=== PATIENT | male | born 1970 | race Two or more races ===

== ENCOUNTER 2023-08-30 19:50 | Emergency (ER) | payer OTHER ==
[~2023-08-30] VITALS: Ht 152.4 cm; Wt 87.5 kg
[2023-08-30] MEDS ORDERED: ZESTRIL10 M1 (20:16)
[2023-08-30 21:23] LABS: CALCIUM 8.8 mg/dL (8.5-10.1); CREATININE SERUM 1.28 mg/dL (0.70-1.30); GFR 58.56; POTASSIUM 4.07 mEq/L (3.5-5.1)
[2023-08-30 21:47] LABS: HEMATOCRIT 42.2 % (39.0-48.0); HEMOGLOBIN 14.6 g/dL (13-16.00); MEAN CELL VOLUME 85.7 fL (80.0-100.00); MEAN CORPUSCULAR HEMOGLOBIN 29.5 pg (27.00-32.0); MEAN CORPUSCULAR HGB CONC 34.5 g/dl (32.0-36.0); PLATELET COUNT 236 K/uL (150-450); RED BLOOD COUNT 4.93 M/uL (4.00-6.00); RED CELL DISTRIBUTION WIDTH 13.4 % (11.5-14.5)
== END 2023-08-30 22:07 | disposition home or self-care (01) ==
LOC: ER 19:51
PROVIDERS: General Practice
DX: R53.81 Other malaise (principal); R42 Dizziness and giddiness